=== PATIENT | female | born 1970 | race Caucasian/White ===

== ENCOUNTER 2016-09-03 15:51 | Emergency (ER) | payer OTHER ==
[~2016-09-03] VITALS: Ht 160 cm; Wt 77.0 kg
[~2016-09-03 15:51] MED LIST: METF500T4
[2016-09-03] MEDS ORDERED: LIDOCAINE HCL 1% 20ML VIAL (Pyxis) INJ MC ONE (18:45)
[2016-09-03] MEDS ORDERED: INSULIN REGULAR (HUMULIN R) 300UNITS/3ML SUBCUT ONE (18:45)
[2016-09-03] MEDS ORDERED: KETOROLAC 60MG/2ML VIAL IM ONE (18:45)
[2016-09-03] MEDS ORDERED: BACITRACIN ZINC OINT UDPKT TOP ONE (18:45)
[2016-09-03 18:55] LABS: BASOPHILS % 0.5 % (0.0-2.0); EOSINOPHILS % 0.6 % (0.0-5.0); HEMATOCRIT. 38.2 % (36.0-48.0); HEMOGLOBIN. 12.9 g/dL (12.0-16.0); LYMPHOCYTES % 42.8 % (20.0-50.0); MEAN CORPUSCULAR HEMOGLOBIN 29.4 pg (28.0-32.0); MEAN CORPUSCULAR HGB CONC 33.6 g/dL (31.0-37.0); MEAN CORPUSCULAR VOLUME 87.4 fL (81.0-99.0); MEAN PLATELET VOLUME 8.3 fl (7.4-10.4); MONOCYTES % 8.9 % (2.0-8.0); NEUTROPHILS % 47.2 % (40.0-76.0); PLATELET 429 x1000/uL (130-400); RED BLOOD CELL COUNT 4.38 mill/uL (4.2-5.4); RED CELL DISTRIBUTION WIDTH 12.5 % (11.6-14.6); WHITE BLOOD COUNT 7.9 x1000/uL (4.5-11.0)
[2016-09-03 18:59] LABS: CHLORIDE 99 mEq/L (98-107); INDEX HEMOLYSI 1 (1-3); INDEX ICTERIC 1 (1-4); INDEX LIPEMIC 1 (1-3)
[2016-09-03 19:08] LABS: ANION GAP 14; BETA HYDROXYBUTYRATE 0.1 mMol/L (0.0-0.3); CALCIUM 8.7 mg/dL (8.5-10.1); CARBON DIOXIDE 28 mEq/L (21-32); UREA NITROGEN BLOOD 6 mg/dL (7-21); eGFR > 60 mL/min (>60)
[2016-09-03 19:21] VITALS: BP 138/84
== END 2016-09-03 21:13 | disposition home or self-care (01) ==
LOC: ER 15:52
DX: L02.416 Cutaneous abscess of left lower limb (principal); E11.65 Type 2 diabetes mellitus with hyperglycemia; Z91.14 Patient's other noncompliance with medication regimen
CPT/HCPCS: 10060; 36415; 80048; 82010; 82962; 85025; 96372; 99284; J1815; J1885; J3490; X7700; Z7610

== ENCOUNTER 2016-09-05 14:59 | Emergency (ER) | payer OTHER ==
[~2016-09-05] VITALS: Ht 157.5 cm; Wt 77.2 kg
[2016-09-05 20:33] VITALS: BP 130/78
== END 2016-09-05 20:35 | disposition home or self-care (01) ==
LOC: ER 15:00
DX: L02.415 Cutaneous abscess of right lower limb (principal); E11.9 Type 2 diabetes mellitus without complications
CPT/HCPCS: 99282

== ENCOUNTER 2018-01-12 01:04 | Emergency (ER) | payer OTHER ==
[~2018-01-12] VITALS: Ht 157.5 cm; Wt 73.0 kg
[~2018-01-12 01:04] MED LIST changes: -METF500T4; +METF500T6
[2018-01-12] MEDS ORDERED: SODIUM CHLORIDE 0.9% 1,000 ML IV ONE (01:54)
[2018-01-12] MEDS ORDERED: ONDANSETRON HCL 4MG/2ML INJ IV STA (01:54)
[2018-01-12] MEDS ORDERED: MORPHINE SULFATE 4 MG/ML CPJ (NOT FOR IM USE) IV STA (01:54)
[2018-01-12] MEDS ORDERED: CLINDAMYCIN 600 MG in DEXTROSE 5% WATER 50 ML IV ONE (02:00)
[2018-01-12 02:36] LABS: BASOPHILS % 0.4 % (0.0-2.0); EOSINOPHILS % 0.5 % (0.0-5.0); HEMATOCRIT. 42.7 % (36.0-48.0); HEMOGLOBIN. 14.4 g/dL (12.0-16.0); LYMPHOCYTES % 21.4 % (20.0-50.0); MEAN CORPUSCULAR HEMOGLOBIN 30.1 pg (28.0-32.0); MONOCYTES % 7.8 % (2.0-8.0); NEUTROPHILS % 69.9 % (40.0-76.0); PLATELET 446 x1000/uL (130-400); RED CELL DISTRIBUTION WIDTH 13.7 % (11.6-14.6)
[2018-01-12 02:42] LABS: CHLORIDE 103 mEq/L (98-107)
[2018-01-12] MEDS ORDERED: CLINDAMYCIN 600MG PREMIX 50 ML IV SCH (02:48)
[2018-01-12 02:51] LABS: BETA HYDROXYBUTYRATE 0.1 mMol/L (0.0-0.3)
[2018-01-12 05:54] VITALS: BP 100/62
== END 2018-01-12 05:57 | disposition home or self-care (01) ==
LOC: ER 01:04
DX: R42 Dizziness and giddiness (principal); R53.1 Weakness; R11.2 Nausea with vomiting, unspecified; E11.9 Type 2 diabetes mellitus without complications; Z79.84 Long term (current) use of oral hypoglycemic drugs
CPT/HCPCS: 36415; 71045; 80053; 82010; 83605; 85025; 87040; 93005; 96361; 96365; 96366; 96375; 99285; J2270; J2405; J3490; J7030; Z7610; J7060

== ENCOUNTER 2020-10-29 00:52 | Emergency (ER) | payer OTHER ==
[~2020-10-29] VITALS: Ht 160 cm; Wt 66.0 kg
[~2020-10-29 00:52] MED LIST changes: +METF-414; -METF500T6
[2020-10-29] MEDS ORDERED: KETOROLAC 30MG/ML VIAL IV STA (02:21)
[2020-10-29] MEDS ORDERED: ONDANSETRON HCL 4MG/2ML INJ IV STA (02:21)
[2020-10-29] MEDS ORDERED: LIDOCAINE HCL/EPINEPHRINE 1%-EPI 1:100,000 20 ML VIAL INFIL ONE (02:30)
[2020-10-29] MEDS ORDERED: BACITRACIN ZINC OINT UDPKT TOP ONE (02:30)
[2020-10-29] MEDS ORDERED: CLINDAMYCIN 600 MG in DEXTROSE 5% WATER 50 ML IV ONE (03:45)
[2020-10-29] MEDS ORDERED: IBUP-2029 PO (03:58)
[2020-10-29] MEDS ORDERED: SULF1TAB48 MT (03:58)
[2020-10-29] MEDS ORDERED: AMOX-424 MT (03:58)
[2020-10-29] MEDS ORDERED: CLINDAMYCIN 600MG PREMIX 50 ML IV SCH (04:00)
[2020-10-29 04:55] VITALS: BP 120/65
== END 2020-10-29 04:54 | disposition home or self-care (01) ==
LOC: ER 00:52
DX: L02.31 Cutaneous abscess of buttock (principal); E11.65 Type 2 diabetes mellitus with hyperglycemia; Z79.4 Long term (current) use of insulin; R03.0 Elevated blood-pressure reading, without diagnosis of hypertension
CPT/HCPCS: 10060; 82962; 96365; 96375; 99284; J1885; J2405; J3490

== ENCOUNTER 2020-11-01 07:21 | Emergency (ER) | payer OTHER ==
[~2020-11-01] VITALS: Ht 157.5 cm; Wt 66.0 kg
[~2020-11-01 07:21] MED LIST changes: +AMOX-424 MT; +IBUP-2029 PO; +SULF1TAB48 MT
[2020-11-01 07:27] VITALS: BP 112/60
== END 2020-11-01 08:42 | disposition home or self-care (01) ==
LOC: ER 07:33
DX: Z48.01 Encounter for change or removal of surgical wound dressing (principal); E11.9 Type 2 diabetes mellitus without complications; Z79.899 Other long term (current) drug therapy
CPT/HCPCS: 99281

== ENCOUNTER 2024-09-29 16:40 | Emergency (ER) | payer OTHER ==
[~2024-09-29] VITALS: Ht 167.6 cm; Wt 70.0 kg
[~2024-09-29 16:40] MED LIST changes: -AMOX-424 MT; -IBUP-2029 PO; +INSU100I28 SQ; -METF-414; +METF-416 MT; -SULF1TAB48 MT
[2024-09-29 16:50] VITALS: O2SAT 99
[2024-09-29] MEDS ORDERED: MUPI15CR11 TP (17:27)
[2024-09-29] MEDS ORDERED: CEPH500C2 MT (17:27)
[2024-09-29] MEDS ORDERED: SULF1TAB48 MT (17:27)
[2024-09-29 17:29] VITALS: BP 105/62; PULSE 87; RESP 16; TEMP 36.9; O2SAT 99
== END 2024-09-29 17:29 | disposition home or self-care (01) ==
LOC: ER 16:40
DX: L21.9 Seborrheic dermatitis, unspecified (principal); L82.1 Other seborrheic keratosis; E11.9 Type 2 diabetes mellitus without complications; Z79.899 Other long term (current) drug therapy; Z79.84 Long term (current) use of oral hypoglycemic drugs; Z79.4 Long term (current) use of insulin
CPT/HCPCS: 99283